=== PATIENT | female | born 1995 | race Caucasian/White ===

== ENCOUNTER 2024-05-18 17:49 | Emergency (ER) | payer OTHER, BC, SELFPAY ==
[2024-05-18 18:44] VITALS: BP 135/93; PULSE 95; RESP 18; TEMP 36.9; O2SAT 97; BMI 39.2
--- NOTE | 2024-05-18 19:11 | ED_ITS ---
HPI - Medical Clearance General Chief complaint: Body Fluid Exposure Stated complaint: exposed to rabies Time Seen by Provider: 05/18/24 19:55 Source: patient Mode of arrival: ambulatory Limitations: no limitations History of Present Illness HPI Narrative: Patient is a 28-year-old female who presents to the emergency department after recent exposure to rabies. She works as a electrical manufacturing technician, she reports th at she spoke to the real estate associate attorney who recommended rabies vaccination regimen as she was exposed 1 week ago to a rabid cat, she denies any known bite or scratch, no open wounds but was in contact loosely with the animal. She offers no physical complaints at this time. She states she has not been vaccinated for rabies in the past. Related Information Allergies Allergy/AdvReac Type Severity Reaction Status Date / Time No Known Allergies Allergy Verified 05/18/24 18:46 Review of Systems Review of Systems: Yes all other systems are reviewed and are negative [facility] Past Medical History Attestation statement: The following information was validated with the patient. Source: old records reviewed Medical History Exposure to rabies Social History Social History Advance Directives: No Advance Directives Information Provided: No Physical Exam Vital Signs: Vital Signs: Last Vital Signs Temp 98.5 F 05/18/24 18:44 Pulse 95 05/18/24 18:44 Resp 18 05/18/24 18:44 BP 135/93 H 05/18/24 18:44 Pulse Ox 97 05/18/24 18:44 O2 Del Method Room Air 05/18/24 18:44 BMI result Body Mass Index 39.2 Appearance: Alert.?Oriented to person, place and time. No acute distress.?Normal affect. Neck: Normal inspection.? Neck supple.?? CVS: Heart sounds normal. Normal heart rate and rhythm.? Pulses normal.?? Respiratory: No respiratory distress.? Lung sounds clear to auscultation bilaterally?? Skin: Skin warm and dry.? Normal skin color.? Extremities: No lower extremity edema.? Neuro: Moves all extremities spontaneously. Sensation intact bilaterally. CN II- XII intact. No focal neuro deficits. Ambulates with normal steady gait. Course Course Course Narrative: Rapid medical exam performed by Sloane Green PA-C. 28-year-old female presents after exposure to rabies. The patient works as a electrical manufacturing technician, 1 week ago, multiple staff members were exposed to a rabid animal. To note, the patient did not have an open wound, there was no trauma or new bite wounds sustained by the rabid animal, she simply was in contact with the animal. Patient was sent here for post exposure prophylaxis and to initiate the rabies vaccine series. On exam, the patient is well in appearance, hemodynamically stable. No indication for labs. Patient will return to the waiting room until she can receive treatment. Medical Decision Making Medical Decision Making MDM Narrative: Patient is a 28-year-old female with no reported past medical history who presents to the emergency department for rabies vaccination series after exposure to rapid animal as per HPI. Offers no physical complaints and her physical examination is benign. She has had no prior vaccination therefore will require the complete vaccination series in addition to rabies IG. Given there is no open wound, or known scratch/bite, will administer the immunoglobulin intramuscularly. Provided with instructions for remainder of rabies vaccination series to be done on an outpatient basis. Discussed worrisome signs and symptoms that would warrant re-evaluation emergency department. All questions answered. Stable for discharge. Differential Diagnosis Differential Diagnoses: The differential diagnosis associated with the presentation includes (See narrative above) External Record Review External record reviewed: Outpatient record Discharge Plan Discharge Clinical Impression: Exposure to rabies Patient Disposition: Home, Self-Care Instructions: Rabies Vaccine (By injection), Rabies Immune Globulin (By injection), Rabies (ED) Additional Instructions: Rabies follow up with the [facility]: Upon discharge from the ED today, you will be contacted by the Infusion Center to schedule your follow up Rabies vaccines. You will need a total of 3 more injections. If for some reason you do not receive a call, please call the Infusion Center directly at [phone]. Follow up with your primary care juaquin haro after completion of the vaccine to have a titer drawn to ensure the vaccines effectiveness. Print Language: Lithuanian
[2024-05-18] MEDS: Rabies Vaccine (PCEC)/PF 1 ML VIAL IM (21:13)
[2024-05-18] MEDS: Rabies Immune Globulin/PF 900 UNIT/3 ML VIAL 2138 UNIT IM (21:17)
[2024-05-18 21:30] VITALS: BP 111/75; PULSE 92; RESP 16; TEMP 36.7; O2SAT 98
== END 2024-05-18 21:31 | disposition home or self-care (01) ==
PROVIDERS: Emergency Provider Emergency Medicine Emergency Medical Services
DX: Z20.3 Contact with and (suspected) exposure to rabies (principal); Z23 Encounter for immunization
CPT/HCPCS: 90375; 90471; 90675; 96372; 99282; 99284

== ENCOUNTER 2024-06-01 07:45 | Outpatient (RCR) | payer OTHER, BC, SELFPAY ==
[2024-05-21 07:50] VITALS: BP 123/88; PULSE 89; RESP 14; TEMP 36.6; O2SAT 98
[2024-05-21] MEDS: Rabies Vaccine (PCEC)/PF 1 ML VIAL IM (07:57)
[2024-05-25 07:47] VITALS: BP 132/92; PULSE 105; RESP 20; TEMP 36.6; O2SAT 98
[2024-05-25] MEDS: Rabies Vaccine (PCEC)/PF 1 ML VIAL IM (07:48)
[2024-06-01 07:46] VITALS: BP 144/93; PULSE 88; RESP 12; TEMP 36.3; O2SAT 98
[2024-06-01] MEDS: Rabies Vaccine (PCEC)/PF 1 ML VIAL IM (07:49)
== END 2024-06-01 07:52 | disposition home or self-care (01) ==
LOC: HO.INF 07:45
PROVIDERS: Visit Provider Nurse Practitioner Family
DX: Z20.3 Contact with and (suspected) exposure to rabies (principal)
CPT/HCPCS: 90471; 90675